=== PATIENT | female | born 1940 | race Caucasian/White ===

== ENCOUNTER 2018-05-04 10:24 | Emergency (ER) | payer OTHER ==
[~2018-05-04] VITALS: Ht 154.9 cm; Wt 70.3 kg
[2018-05-04] MEDS ORDERED: IRBESARTAN300 MG (10:40)
[2018-05-04] MEDS ORDERED: AMLODIPINE BESY10 MG (10:40)
[2018-05-04] MEDS ORDERED: SERTRALINE HCL50 MG (10:41)
[2018-05-04] MEDS ORDERED: FOLIC ACID1 MG (10:41)
[2018-05-04] MEDS ORDERED: MIRTAZAPINE30 M1 (10:42)
[2018-05-04] MEDS ORDERED: GALANTAMINE HBR8 MG (10:42)
[2018-05-04] MEDS ORDERED: ASA81 MG (10:43)
[2018-05-04] MEDS ORDERED: LIVALO2 MG (10:43)
[2018-05-04] MEDS ORDERED: TORSEMIDE5 MG (10:43)
[2018-05-04] MEDS ORDERED: MAGNESIUM250 M1 (10:44)
[2018-05-04] MEDS ORDERED: TOPROL XL100 M1 (10:44)
[2018-05-04] MEDS ORDERED: SYNTHROID75 MCG (10:45)
[2018-05-04] MEDS ORDERED: LANTUS SOL100 UNIT/1 (10:46)
[2018-05-04] MEDS ORDERED: HUMALOG100 UNIT/1 (10:46)
[2018-05-04] MEDS ORDERED: FENOFIBRATE134 MG (10:46)
== END 2018-05-04 12:57 | disposition home or self-care (01) ==
LOC: ER 10:24
DX: S00.03XA Contusion of scalp, initial encounter (principal); W18.09XA Striking against other object with subsequent fall, initial encounter; Y93.89 Activity, other specified; Y92.018 Other place in single-family (private) house as the place of occurrence of the external cause; Y99.8 Other external cause status

== ENCOUNTER 2020-04-11 09:44 | Inpatient (IN) | payer OTHER ==
[~2020-04-11] VITALS: Ht 157.5 cm; Wt 88.5 kg
[~2020-04-11 09:44] MED LIST: AMLODIPINE BESY10 MG; ASA81 MG; FENOFIBRATE134 MG; FOLIC ACID1 MG; GALANTAMINE HBR8 MG; HUMALOG100 UNIT/1; IRBESARTAN300 MG; LANTUS SOL100 UNIT/1; LIVALO2 MG; MAGNESIUM250 M1; MIRTAZAPINE30 M1; SERTRALINE HCL50 MG; SYNTHROID75 MCG; TOPROL XL100 M1; TORSEMIDE5 MG
[2020-04-11] MEDS ORDERED: LIVALO4 MG PO (10:39)
[2020-04-11] MEDS ORDERED: PLAVIX75 MG PO (10:42)
--- NOTE | 2020-04-11 10:43 | NUR ---
PACIENTE ALERTA, OPRIENTADA X 3 ESFERAS REFIERE TENER MALESTAR GENERALIZADPO, DESDE LEXUS A PRESENTADO PESADES EN LA BOCA, LA LENGUA PESADA Y DIFICULTAD EN TRAGAR ANTONIETA PROVOCANDO QUE SE LE SALGAN. DEXTRO =266. SE UBICA EN AREA DE OBSERVACION, EN CLARK [address] 13, EN MODALIDAD MAS BAJA,CON BARRANDAS ELEVADAS Y ESPALDAL ELEVADO. SE NOTIFICA A CEM.
--- NOTE | 2020-04-11 12:00 | NUR ---
PACIENTE ALERTA Y ORIENTADA EN YASMINE CYNDY ESFERAS, ES ORIENTADA SOBRE ORDENES MEDICAS, REFIERE ENTENDER. SE COLECTAN MUESTRAS DE BOBBY, SE CANALIZA VENA Y SE ADMINISTRA 0.9% NSS A KVO. PENDIENTE MUESTRA DE ORINA, PACIENTE TIENE ENVASE, PENDIENTE CT DE TAMIA.
--- NOTE | 2020-04-11 12:01 | NUR ---
TERAPIA RESPIRATORIA NOTIFICADA A MR MAXWELL.
--- NOTE | 2020-04-11 15:54 | NUR ---
SE RECIBE PTE ALERTA Y ORIENTADA X 3 ESFERAS EN CAMA CON BARANDAS ELEVADAS POR SEGURIDAD. ASISTIDA POR ELIDA CANULA NASAL A 3LTS PRESENTANDO BUEN PATRON RESPIRATORIO. RECIBIENDO IV'S 0.9NSS BAJANDO A 50ML/HR AREA DUARTE DE EDEMA Y ERITEMA. PENDIENTE RE-EVALUACION MEDICA. SE MANTIENE EN OBSERVACION POR CAMBIOS.
[2020-04-14] MEDS ORDERED: AMLODIPINE BESY10 MG PO (13:55)
[2020-04-14] MEDS ORDERED: CLOPIDOGREL BIS75 MG PO (13:55)
[2020-04-14] MEDS ORDERED: LIPITOR40 MG PO (13:56)
[2020-04-14] MEDS ORDERED: LOSARTAN POTASS50 MG PO (13:56)
[2020-04-14] MEDS ORDERED: LIVALO4 MG PO (13:58)
[2020-04-14] MEDS ORDERED: LEVOTHYROXINE88 MCG PO (13:59)
[2020-04-14] MEDS ORDERED: HUMALOG100 UNIT/1 SUBCUTANEO (13:59)
[2020-04-14] MEDS ORDERED: Lantus 1000 UNITS/10 SUBCUTANEO (14:00)
[2020-04-14] MEDS ORDERED: TOPROL XL50 M1 PO (14:00)
== END 2020-04-14 15:27 | disposition home health service (06) | DRG 65 ==
LOC: ER 09:44 → MEDJ 18:47
PROVIDERS: ADMIT Internal Medicine; ATTEND Internal Medicine
PROC: BW28ZZZ Computerized Tomography (CT Scan) of Head (ICD-10-PCS; principal; 2020-04-11)
PROC: B24BZZZ Ultrasonography of Heart with Aorta (ICD-10-PCS; 2020-04-11)
PROC: B345ZZZ Ultrasonography of Bilateral Common Carotid Arteries (ICD-10-PCS; 2020-04-11)
PROC: 4A033R1 Measurement of Arterial Saturation, Peripheral, Percutaneous Approach (ICD-10-PCS; 2020-04-11)
PROC: 4A12X4Z Monitoring of Cardiac Electrical Activity, External Approach (ICD-10-PCS; 2020-04-11)
PROC: B030ZZZ Magnetic Resonance Imaging (MRI) of Brain (ICD-10-PCS; 2020-04-12)
PROC: 3E0F7GC Introduction of Other Therapeutic Substance into Respiratory Tract, Via Natural or Artificial Opening (ICD-10-PCS; 2020-04-12)
PROC: 3E0F7GC Introduction of Other Therapeutic Substance into Respiratory Tract, Via Natural or Artificial Opening (ICD-10-PCS; 2020-04-12)
DX: I63.411 Cerebral infarction due to embolism of right middle cerebral artery (principal); I69.354 Hemiplegia and hemiparesis following cerebral infarction affecting left non-dominant side; R47.1 Dysarthria and anarthria; R13.19 Other dysphagia; I34.0 Nonrheumatic mitral (valve) insufficiency; I25.10 Atherosclerotic heart disease of native coronary artery without angina pectoris; G47.33 Obstructive sleep apnea (adult) (pediatric); I10 Essential (primary) hypertension; R29.702 NIHSS score 2; Z20.828 Contact with and (suspected) exposure to other viral communicable diseases
CPT/HCPCS: 70544